=== PATIENT | female | born 1965 | race Caucasian/White ===

== ENCOUNTER → 2017-12-16 | Outpatient (CLI) | payer OTHER ==
[~2017-12-16] MED LIST: ACETAMINOPHEN325 M1 PO; COLACE100 MG PO; HYDROCODON-ACE1 EAC7 PO; IBUPROFEN 600600 M1 PO; MULTIVITAMINS PO; SUDAFED240 MG PO; SUDAFED30 MG PO; TYLENOL ALLERG1 EA11 PO
== END ==
LOC: CAT 10:25
DX: Z13.6 Encounter for screening for cardiovascular disorders (principal); I25.10 Atherosclerotic heart disease of native coronary artery without angina pectoris; Z82.49 Family history of ischemic heart disease and other diseases of the circulatory system

== ENCOUNTER → 2021-04-17 | Outpatient (CLI) | payer BC ==
[~2021-04-17] MED LIST changes: +BUPROPION XL300 MG PO; +ESTRADIOL42.5 GM VAG; +METOPROLOL SUCC25 M1 PO; +OMEPRAZOLE40 MG PO
== END ==
LOC: SJCVCIMAG 11:11
PROVIDERS: ATTEND Nurse Practitioner
DX: I25.9 Chronic ischemic heart disease, unspecified (principal); R07.89 Other chest pain; R12 Heartburn

== ENCOUNTER 2021-04-18 19:39 | Emergency (ER) | payer BC ==
[~2021-04-18] VITALS: Ht 165.1 cm; Wt 70.3 kg
[~2021-04-18 19:39] MED LIST changes: -BUPROPION XL300 MG PO; -ESTRADIOL42.5 GM VAG; -METOPROLOL SUCC25 M1 PO; -OMEPRAZOLE40 MG PO
[2021-04-18] MEDS ORDERED: BUPROPION XL300 MG PO (20:04)
[2021-04-18] MEDS ORDERED: OMEPRAZOLE40 MG PO (20:04)
[2021-04-18] MEDS ORDERED: ESTRADIOL42.5 GM VAG (20:04)
[2021-04-18] MEDS ORDERED: METOPROLOL SUCC25 M1 PO (20:04)
[2021-04-18 20:11] LABS: HEMATOCRIT 41.5 % (37.0-47.0); MCHC 33.6 g/dL (28.0-37.0); MCV 89.3 fL (80.0-100.0); RBC 4.65 mil/uL (4.20-5.00); RDW 12.7 % (10.5-14.5); WBC 7.5 thou/uL (4.0-11.0)
[2021-04-18 20:21] LABS: CALCIUM 8.7 mg/dL (8.5-10.1); CREATININE 0.8 mg/dL (0.6-1.0); POTASSIUM 3.3 mmol/L (3.5-5.1)
[2021-04-18 20:34] LABS: ALBUMIN 3.8 g/dL (3.4-5.0); TOTAL BILIRUBIN 0.3 mg/dL (0.2-1.0); TOTAL PROTEIN 7.4 g/dL (6.4-8.2)
[2021-04-18 21:38] VITALS: BP 130/63
--- NOTE | 2021-04-19 08:25 | EKG ---
[facility] [place] [address] [place] [address] ELECTROCARDIOGRAM REPORT Name: SEBASTIEN VILLANUEVA Room #: [facility]P [id number] Admission: 04/18/21 Attend Phys: Discharge: 04/18/21 Date of : 61 Report #: [id number] [facility] ED Test Date: 2021-04-18 Test Time: 19:54:48 Pat Name: SEBASTIEN VILLANUEVA Department: Room: Gender: F [employer] Operator: ZENAIDA : 1965 Requested By: Roseann Da Silva Order Number: [id number] MD: Orlando Guadarrama Measurements Intervals [place] Rate: 78 P: 19 TN: 150 QRS: -17 QRSD: 111 T: 10 QT: 426 QTc: 486 Interpretive Statements Sinus rhythm Borderline left axis deviation Nonspecific T abnormalities, lateral leads Borderline prolonged QT interval Baseline wander in lead(s) II,III,aVL,aVF No previous ECG available for comparison Electronically Signed On 04-19-2021 8:25:30 CDT by Orlando Guadarrama [email or web address] <ELECTRONICALLY SIGNED> By: Orlando Guadarrama MD, [facility] 04/19/21824 53 53 Orlando Guadarrama MD, FACC /EPI
== END 2021-04-18 21:43 | disposition home or self-care (01) ==
LOC: ER 19:39
PROVIDERS: Nurse Practitioner Family
DX: R00.2 Palpitations (principal); Z20.822 Contact with and (suspected) exposure to COVID-19; R06.00 Dyspnea, unspecified; E05.90 Thyrotoxicosis, unspecified without thyrotoxic crisis or storm; G35 Multiple sclerosis; Z86.16 Personal history of COVID-19; Z87.442 Personal history of urinary calculi; Z79.1 Long term (current) use of non-steroidal anti-inflammatories (NSAID); Z79.891 Long term (current) use of opiate analgesic; Z79.899 Other long term (current) drug therapy

== ENCOUNTER 2021-04-22 15:59 | Inpatient (IN) | payer BC ==
[~2021-04-22] VITALS: Ht 165.1 cm; Wt 73.2 kg
[~2021-04-22 15:59] MED LIST changes: +BUPROPION XL300 MG PO; +ESTRADIOL42.5 GM VAG; +METOPROLOL SUCC25 M1 PO; +OMEPRAZOLE40 MG PO
[2021-04-22 16:00] VITALS: BP 145/58
[2021-04-22 16:42] LABS: ABSOLUTE NEUTROPHILS 3.3 thou/uL (1.4-8.2); BASOPHILS 0.6 % (0.0-2.0); EOSINOPHILS 1.9 % (0.0-3.0); HEMATOCRIT 41.1 % (37.0-47.0); HEMOGLOBIN 13.7 gm/dL (12.0-15.0); LYMPHOCYTES 41.2 % (24.0-44.0); MCH 29.6 pg (26.0-34.0); MCHC 33.2 g/dL (28.0-37.0); MCV 89.1 fL (80.0-100.0); MONOCYTES 7.1 % (1.0-8.0); PLATELET COUNT 287 thou/uL (150-400); POLYS 49.2 % (36.0-66.0); RBC 4.62 mil/uL (4.20-5.00); RDW 12.8 % (10.5-14.5); WBC 6.7 thou/uL (4.0-11.0)
[2021-04-22 16:54] LABS: CALCIUM 8.9 mg/dL (8.5-10.1); CREATININE 0.9 mg/dL (0.6-1.0); POTASSIUM 3.8 mmol/L (3.5-5.1)
--- NOTE | 2021-04-22 18:19 | NUR ---
PT ORIENTED TO ROOM AND UNIT, BED LOW AND LOCKED, SIDE RAILS UPX3, CALL LIGHT IN REACH. PT DENIES CHEST PAIN AT THIS TIME. TELE APPLIED. WILL CONTINUE TO ASSESS.
[2021-04-22 18:35] VITALS: BP 131/69
[2021-04-22 18:38] VITALS: BP 146/73
[2021-04-22 19:54] VITALS: BP 137/54
[2021-04-22 23:49] VITALS: BP 129/73
[2021-04-23] VITALS (9 sets, daily range): BP systolic 123–138; BP diastolic 70–83
--- NOTE | 2021-04-23 03:23 | NUR ---
PT IS HAVING A CARDIAC CATH DONE NPO FOR PROCEDURE. PT COMPLAINE OF SHOULDER PAIN ON RIGHT SIDE PAIN MEDS GIVEN AND PT REPORTS RELIEF AND SLEPT AFTER WARDS. LUNGS CLEAR ON ROOM AIR. DENIES CHEST PAIN. CALL LIGHT WITHIN REACH IF NEEDS NURSING ASSISTANCE PER STAFF.
[2021-04-23 04:54] LABS: CHOLESTEROL 216 mg/dL (<200); HDL CHOLESTEROL 55 mg/dL (>40); LDL CHOLESTEROL 139 mg/dL (<100); TC:HDL 3.9 Ratio (Not establshd); TRIGLYCERIDE 113 mg/dL (<150); VLDL 23 mg/dL (<40)
[2021-04-23 05:02] LABS: CALCIUM 8.3 mg/dL (8.5-10.1); CREATININE 0.8 mg/dL (0.6-1.0); MAGNESIUM 2.4 mg/dL (1.8-2.4); POTASSIUM 3.9 mmol/L (3.5-5.1)
[2021-04-23 05:07] LABS: BASOPHILS 0.7 % (0.0-2.0); EOSINOPHILS 2.2 % (0.0-3.0); LYMPHOCYTES 52.8 % (24.0-44.0); MCH 29.7 pg (26.0-34.0); MCHC 33.2 g/dL (28.0-37.0); MCV 89.4 fL (80.0-100.0); MONOCYTES 7.1 % (1.0-8.0); PLATELET COUNT 239 thou/uL (150-400); POLYS 37.2 % (36.0-66.0); RBC 4.36 mil/uL (4.20-5.00); RDW 12.8 % (10.5-14.5); WBC 5.5 thou/uL (4.0-11.0)
[2021-04-23 05:25] LABS: SERUM ASSESSMENT Clear
--- NOTE | 2021-04-23 12:05 | CATHLAB ---
[facility] [place] [address] INVASIVE PROCEDURE REPORT Name: SEBASTIEN VILLANUEVA Room #: 212-P ADM IN M.R.#: [id number] Admission: 04/22/21 Attend Phys: Kel Kinney MD Discharge: Date of : 61 Report #: [id number] THIS REPORT FOR: cc: Felix Serrano,Shivam Oropeza MD ~ APPROVED REPORT Study performed: 04/23/2021 09:23:52 Patient Details Patient Status: In-Patient Room #: The patient is a 56 year-old female Event Personnel Shivam Gould Infection Prevention Practitioner, Berenice Andrea RTR Rocye Jones Valisa Monitor, Alisa Beard RN Procedures Performed Left Heart Cath w/or w/o Coronaries [id number] [facility] Art Access - R femoral artery* 70440 Initial Mod Sed Same Phys/QHP Gr5y [id number] Hemostasis with Manual pressure Indication Unstable angina , Positive stress test, Chest pain Risk Factors Hypercholesterolemia, Hypertension Procedure Narrative The patient was brought electivelyurgently to the Cardiac Catheterization Laboratory and was prepped and draped in a sterile manner. The Right Groin^ was infiltrated with 1% Lidocaine subcutaneous anesthesia. A PINNACLE 4FR Sheath #[id number] sheath was inserted into the RFA^. Coronary angiography was performed using coronary diagnostic catheters. The right coronary system was accessed and visualized with a JR4 catheter. The left coronary system was accessed and visualized with a JL4 catheter. The left ventricle was accessed and visualized with a PIGTAIL catheter. Left ventricular/Aortic Valve gradient assessed via catheter pullback. Left ventriculogram was performed in 30 degree projection. There was no hematoma. Intraoperative Conscious Sedation [facility] [address] [place] [address] INVASIVE PROCEDURE REPORT Name: SEBASTIEN VILLANUEVA Room #: 212-P [facility] IN [facility].#: [id number] Admission: 04/22/21 Attend Phys: Kel Kinney MD Discharge: Date of : 61 Report #: [id number] Sedation start time: 10:10 Case end Time: 10:35 Fentanyl 50 mcg Versed 1.5 mg Fluoro Time: 2.70 minutes Dose: DAP 3124.30 cGycm2 408 mGy Contrast Type and Amount: Omnipaque 70 ml Coronary Angiography The patient's coronary anatomy is right dominant. Diagnostic Cath Left Main The left main artery is a large-caliber vessel, appears angiographically normal. LAD The LAD is a moderate-sized caliber vessel, traverses the anterior wall and wraps around the apex. This vessel is patent with no flow-limiting lesions. Diagonal 1 This is a moderate-sized caliber vessel, originates from the mid LAD segment. This vessel is patent with no flow-limiting lesions. Circumflex This is a moderate-sized caliber vessel, appears angiographically normal. OM1 This is a moderate-sized caliber vessel, patent with no flow-limiting lesions. OM2 This is a small to moderate-sized caliber vessel, patent with no flow-limiting lesions. Right Coronary The RCA is a moderate-sized caliber vessel, appears angiographically normal. R PDA This is a moderate-sized caliber vessel, patent with no flow-limiting lesions. RPLV This is a moderate-sized caliber vessel, patent with no flow-limiting lesions. Ramus This is a small to moderate-sized caliber vessel, patent with no flow-limiting lesions. Left Ventriculography The left ventricle is normal in size with Lownormal contractility. The left ventricular ejection fraction is estimated to be 50%. Hemodynamics The aortic pressure is 172/86 mmHg with a mean of 116 mmHg. The left ventricular pressure is 173/14 mmHg with a mean of mmHg. The left ventricular end diastolic pressure is 33 mmHg. Pullback from the left ventricle to the aorta revealed no gradient across the aortic valve. [facility] [address] [place] [address] INVASIVE PROCEDURE REPORT Name: SEBASTIEN VILLANUEVA Room #: 212-P [facility] IN ..#: [id number] Admission: 04/22/21 Attend Phys: Kel Kinney MD Discharge: Date of : 61 Report #: [id number] Conclusion 1. Angiographically normal coronary arteries. 2. This is a right dominant system. 3. There is lownormal LV systolic function. 4. Recommend risk factor management. <ELECTRONICALLY SIGNED> By: Shivam Gould MD 04/23/211204 04 04 Shivam Gould MD /INF
--- NOTE | 2021-04-23 13:41 | 2DMMODE ---
[facility] [place] [address] 2 D/M-MODE ECHOCARDIOGRAM Name: SEBASTIEN VILLANUEVA Room #: 212-P ADM IN M.R.#: [id number] Admission: 04/22/21 Attend Phys: Kel Kinney MD Discharge: Date of : 61 Report #: [id number] THIS REPORT FOR: cc: Felix Serrano,Felix Franco,Shivam Burton MD ~ APPROVED REPORT Study performed: 04/23/2021 12:29:03 EXAM: Comprehensive 2D, Doppler, and color-flow Echocardiogram Patient Location: Bedside Room #: 212 Status: routine BSA: 1.80 HR: 53 bpm BP: 138/53 mmHg Rhythm: NSR Other Information Study Quality: Adequate/bed rest s/p heart cath Indications Palpitations Chest Pain 2D Dimensions RVDd: 31.65 mm IVSd: 9.26 (7-11mm) LVOT Diam: 21.42 (18-24mm) LVDd: 51.67 mm PWd: 8.97 (7-11mm) Ascending Ao: 30.88 (22-36mm) LVDs: 36.07 (25-40mm) Left Atrium: 33.98 (27-40mm) Aortic Root: 31.14 mm Volumes Left Atrial Volume (Systole) Single Plane 4CH: 40.99 mL Single Plane 2CH: 43.06 mL LA ESV Index: 26.00 mL/m2 Aortic Valve AoV Peak Giovany.: 1.44 m/s AO Peak Gr.: 8.29 mmHg LVOT Max P.29 mmHg [facility] [address] [address] 2 D/M-MODE ECHOCARDIOGRAM Name: SEBASTIEN VILLANUEVA Room #: 212-P [facility]#: [id number] Admission: 04/22/21 Attend Phys: Kel Kinney MD Discharge: Date of : 61 Report #: [id number] LVOT Max V: 0.91 m/s ANA MARIA Vmax: 2.27 cm2 Mitral Valve E/A Ratio: 0.8 MV Decel. Time: 388.63 ms MV E Max Giovany.: 0.44 m/s MV A Giovany.: 0.54 m/s MV PHT: 112.70 ms IVRT: 92.27 ms Pulmonary Valve PV Peak Giovany.: 0.77 m/s PV Peak Gr.: 2.35 mmHg Tricuspid Valve TR Peak Giovany.: 2.28 m/s RAP Estimate: 5.00 mmHg TR Peak Gr.: 21.00 mmHg PA Pressure: 26.00 mmHg Left Ventricle The left ventricle is normal size. There is normal LV segmental wall motion. There is normal left ventricular wall thickness. Left ventricular systolic function is normal. LVEF is 60-65%. Mild diastolic dysfunction is present (impaired relaxation pattern). Right Ventricle The right ventricle is normal size. The right ventricular systolic function is normal. Atria The left atrium size is normal. The right atrium size is normal. Aortic Valve The aortic valve is normal in structure. No aortic regurgitation is present. There is no aortic valvular stenosis. Mitral Valve The mitral valve is normal in structure. Mild mitral regurgitation. No evidence of mitral valve stenosis. Tricuspid Valve The tricuspid valve is normal in structure. Mild tricuspid regurgitation. Estimated PAP is 26mmHg. [facility] [address] [place] [address] 2 D/M-MODE ECHOCARDIOGRAM Name: SEBASTIEN VILLANUEVA Room #: 212-P ADM IN M.R.#: [id number] Admission: 04/22/21 Attend Phys: Kel Kinney MD Discharge: Date of : 61 Report #: [id number] Pulmonic Valve The pulmonary valve is normal in structure. Trace pulmonic regurgitation. Great Vessels The aortic root is normal in size. The ascending aorta is normal in size. IVC is normal in size and collapses >50% with inspiration. Pericardium There is no pericardial effusion. <Conclusion> The left ventricle is normal size. There is normal left ventricular wall thickness. Left ventricular systolic function is normal. Mild diastolic dysfunction is present (impaired relaxation pattern). The right ventricle is normal size. The left atrium size is normal. The aortic valve is normal in structure. Mild mitral regurgitation. Mild tricuspid regurgitation. Estimated PAP is 26mmHg. <ELECTRONICALLY SIGNED> By: Shivam Gould MD 04/23/211340 40 40 Shivam Gould MD /INF
[2021-04-23] MEDS ORDERED: LIPITOR40 MG PO (13:54)
--- NOTE | 2021-04-23 15:00 | NUR ---
PATIENT HAD NO COMPLICATIONS POST CARDIAC CATH, R GROIN INTACT, NO DRAINAGE/BLEEDING/HEMATOMA. VITAL SIGNS STABLE. PATIENT COMPLETED BEDREST AND HAD NO COMPLICATION AMBULATING. DISCHARGE INSTRUCTIONS PROVIDED TO PATIENT AND AT BEDSIDE. QUESTIONS AND CONCERNS ADDRESSED. IV ACCESS AND TELEMETRY DISCONTINUED.
== END 2021-04-23 15:50 | disposition home or self-care (01) | DRG 287 ==
LOC: ER 15:59 → EROBS 17:13 → 2N 17:13
PROVIDERS: Emergency Medicine; Nurse Practitioner; ADMIT Hospitalist; ATTEND Hospitalist
PROC: 4A023N7 Measurement of Cardiac Sampling and Pressure, Left Heart, Percutaneous Approach (ICD-10-PCS; principal; 2021-04-23)
PROC: B2111ZZ Fluoroscopy of Multiple Coronary Arteries using Low Osmolar Contrast (ICD-10-PCS; principal; 2021-04-23)
PROC: B2151ZZ Fluoroscopy of Left Heart using Low Osmolar Contrast (ICD-10-PCS; principal; 2021-04-23)
DX: R07.89 Other chest pain (principal); Z20.822 Contact with and (suspected) exposure to COVID-19; K21.9 Gastro-esophageal reflux disease without esophagitis; I10 Essential (primary) hypertension; F41.9 Anxiety disorder, unspecified; E78.5 Hyperlipidemia, unspecified; G47.33 Obstructive sleep apnea (adult) (pediatric); Z87.442 Personal history of urinary calculi; Z82.49 Family history of ischemic heart disease and other diseases of the circulatory system; Z79.899 Other long term (current) drug therapy
CPT/HCPCS: 10081